=== PATIENT | female | born 1970 | race Caucasian/White ===

== ENCOUNTER → 2017-11-10 | Outpatient (REF) ==
[~2017-11-10] MED LIST: AMOX-362 PO; LEVO150T72 PO; OXYC-865 PO; SERT25TA87 PO; SIMV10TA98 PO
[2017-11-10 09:38] LABS: LDL CHOLESTEROL 164 mg/dl
== END ==
DX: Z02.9 Encounter for administrative examinations, unspecified (principal)

== ENCOUNTER → 2018-02-18 | Outpatient (CLI) | payer OTHER ==
[2018-02-18 09:24] LABS: LDL CHOLESTEROL 137 mg/dl
== END ==
LOC: LAB 07:58
PROVIDERS: ATTEND Family Medicine
DX: Z00.00 Encounter for general adult medical examination without abnormal findings (principal)
CPT/HCPCS: 36415; 82040; 82247; 82310; 82374; 82435; 82465; 82565; 82947; 83718; 84075; 84132; 84155; 84295; 84443; 84450; 84460; 84478; 84520; 85027

== ENCOUNTER → 2018-08-26 | Outpatient (CLI) | payer OTHER ==
[2018-08-26 08:31] LABS: LDL CHOLESTEROL 139 mg/dl
== END ==
LOC: LAB 08:03
PROVIDERS: ATTEND Family Medicine
DX: E03.9 Hypothyroidism, unspecified (principal); E78.5 Hyperlipidemia, unspecified
CPT/HCPCS: 36415; 82040; 82247; 82310; 82374; 82435; 82465; 82565; 82947; 83718; 84075; 84132; 84155; 84295; 84443; 84450; 84460; 84478; 84520

== ENCOUNTER → 2018-10-19 | Outpatient (CLI) | payer OTHER ==
--- NOTE | 2018-10-20 11:21 | RADIOLOGY IMAGING REPORT ---
FACILITY: [facility] PATIENT NAME: KVNG SUAREZ : [id number] MR: [id number] V: [id number] EXAM DATE: [id number] ORDERING PHYSICIAN: ANDRES FARFAN TECHNOLOGIST: Donna Dsos PROCEDURE:BILATERAL DIGITAL SCREENING MAMMOGRAM WITH CAD ASSISTED INTERPRETATION & 3D TOMOSYNTHESIS COMPARISON:Prior mammograms 09/29/17, 09/16/16, 07/16/14, 05/30/13, 11/11/12. INDICATIONS:screening FINDINGS: There are scattered areas of fibroglandular density in both breasts. The parenchymal pattern has remained stable allowing for difference in mammographic technique & patient positioning. There is no evidence of malignant appearing mass, malignant appearing calcifications or other secondary sign of malignancy in either breast. DIAGNOSTIC CATEGORY 1--NEGATIVE. RECOMMENDATIONS: ROUTINE MAMMOGRAM AND CLINICAL EVALUATION. IMPRESSION: BIRADS 1: Negative. No significant abnormality is seen. Dictated by: Cally Nelson M.D. on 10/19/2018 at 16:52 Transcribed by: LAZ on 10/20/2018 at 8:27 Approved by: Cally Nelson M.D. on 10/20/2018 at 11:19 [facility]
== END ==
LOC: MAMO 00:53
PROVIDERS: ATTEND Family Medicine
DX: Z12.31 Encounter for screening mammogram for malignant neoplasm of breast (principal)
CPT/HCPCS: 77063; 77067

== ENCOUNTER → 2018-11-17 | Outpatient (CLI) | payer OTHER | LOC: LAB 13:13 | PROVIDERS: ATTEND Surgery | DX: D22.9 Melanocytic nevi, unspecified (principal) | CPT/HCPCS: 88305 ==

== ENCOUNTER 2018-12-20 07:57 | Emergency (ER) | payer OTHER ==
[2018-12-20] MEDS ORDERED: ATOR10TA24 PO (08:12)
--- NOTE | 2018-12-20 08:42 | ER Report ---
History and Physical Time Seen By MD: 08:38 Hx. of Stated Complaint: PT PRESENTS WITH CHEST TIGHTNESS SINCE YESTERDAY. HX OF PANIC ATTACKS HPI/ROS CHIEF COMPLAINT: Chest pain HISTORY OF PRESENT ILLNESS: Patient is a 48-year-old female who presents to emergency department with complaint of chest pressure that began around 9 AM yesterday and was fairly constant throughout the day although in the evening she felt improved. She did notice an exertional component with it was some associated shortness of breath. Denies having a history of coronary artery disease. She denies hypertension but admits to elevated cholesterol. Patient states this morning the discomfort began again left side of the chest with radiation to the left shoulder. For this reason she came to the emergency department for evaluation. Patient is a smoker. REVIEW OF SYSTEMS: Constitutional: No fever, no chills. Eyes: No discharge. ENT: No sore throat. Cardiovascular: Left-sided chest pressure Respiratory: No cough, no shortness of breath. Gastrointestinal: No abdominal pain, no vomiting. Genitourinary: No hematuria. Musculoskeletal: No back pain. Skin: No rashes. Neurological: No headache. Allergies: Coded Allergies: No Known Drug Allergies (Unverified , 11/18/16) Home Meds Reported Medications Atorvastatin Calcium (LIPITOR) 10 Mg Tablet, 1 TAB PO QDAY, TAB 12/20/18 Levothyroxine Sodium (SYNTHROID) 150 Mcg Tablet, 125 MCG PO QDAY 11/18/16 Discontinued Reported Medications Sertraline Hcl (ZOLOFT) 25 Mg Tablet, 1 TAB PO QDAY, TAB 11/18/16 Past Medical/Surgical History Past medical history for high cholesterol, thyroidectomy, hypothyroidism Hx Substance Use Disorder: No Hx Alcohol Use: Yes (SOCIALLY) Constitutional Vital Sign - Last 24 Hours 12/20/18 12/20/18 12/20/18 12/20/18 08:03 08:06 08:14 08:27 Temp 98.6 Pulse 95 83 Resp 20 B/P (MAP) 156/93 (114) 156/93 141/96 (111) Pulse Ox 100 92 12/20/18 12/20/18 12/20/18 08:30 09:27 09:30 Pulse 72 Resp 16 B/P (MAP) 135/92 (106) 130/83 (99) Pulse Ox 95 Physical Exam General Appearance: The patient is alert, has no immediate need for airway protection and no signs of toxicity. Eyes: Pupils equal and round no pallor or injection. ENT, Mouth: Mucous membranes are moist. Respiratory: There are no retractions, lungs are clear to auscultation. Cardiovascular: Regular rate and rhythm. Gastrointestinal: Abdomen is soft and non tender, no masses, bowel sounds normal. Neurological: Awake and alert Skin: Warm and dry, no rashes. Musculoskeletal: Neck is supple non tender. Extremities are nontender, nonswollen and have full range of motion. Medical Decision Making Data Points Result Diagram: 12/20/18 0822 12/20/18 0822 Laboratory Hematology Test 12/20/18 08:22 12/20/18 10:39 Red Blood Count 4.70 M/uL (4.17-5.56) Mean Corpuscular Volume 89.3 fL (80.0-96.0) Mean Corpuscular Hemoglobin 30.4 pg (26.0-33.0) Mean Corpuscular Hemoglobin Concent 34.0 g/dL (32.0-36.0) Red Cell Distribution Width 12.9 % (11.5-14.5) Mean Platelet Volume 9.3 fL (7.2-11.1) Neutrophils (%) (Auto) 49.5 % (39.4-72.5) Lymphocytes (%) (Auto) 40.9 % (17.6-49.6) Monocytes (%) (Auto) 7.8 % (4.1-12.4) Eosinophils (%) (Auto) 1.2 % (0.4-6.7) Basophils (%) (Auto) 0.6 % (0.3-1.4) Nucleated RBC Relative Count (auto) 0.1 /100WBC Neutrophils # (Auto) 3.3 K/uL (2.0-7.4) Lymphocytes # (Auto) 2.7 K/uL (1.3-3.6) Monocytes # (Auto) 0.5 K/uL (0.3-1.0) Eosinophils # (Auto) 0.1 K/uL (0.0-0.5) Basophils # (Auto) 0.0 K/uL (0.0-0.1) Nucleated RBC Absolute Count (auto) 0.00 K/uL Prothrombin Time 12.7 seconds (12.0-14.4) Prothromb Time International Ratio 0.95 Activated Partial Thromboplast Time 26 seconds (23-35) Sodium Level 141 mmol/L (137-145) Potassium Level 4.0 mmol/L (3.5-5.0) Chloride Level 112 mmol/L (98-107) Carbon Dioxide Level 22 mmol/L (22-31) Blood Urea Nitrogen 12 mg/dl (7-18) Creatinine 0.80 mg/dl (0.52-1.04) Glomerular Filtration Rate Calc > 60.0 Random Glucose 91 mg/dl (75-110) Calcium Level 9.6 mg/dl (8.4-10.2) Total Bilirubin 0.3 mg/dl (0.2-1.3) Aspartate Amino Transf (AST/SGOT) 27 U/L (0-35) Alanine Aminotransferase (ALT/SGPT) 31 U/L (0-56) Alkaline Phosphatase 61 U/L (0-126) Total Protein 7.1 g/dl (6.3-8.2) Albumin 4.4 g/dl (3.5-5.0) Troponin I < 0.012 ng/ml Chemistry Test 12/20/18 08:22 12/20/18 10:39 White Blood Count 6.7 k/uL (4.5-11.0) Red Blood Count 4.70 M/uL (4.17-5.56) Hemoglobin 14.3 g/dL (12.0-16.0) Hematocrit 42.0 % (34.0-47.0) Mean Corpuscular Volume 89.3 fL (80.0-96.0) Mean Corpuscular Hemoglobin 30.4 pg (26.0-33.0) Mean Corpuscular Hemoglobin Concent 34.0 g/dL (32.0-36.0) Red Cell Distribution Width 12.9 % (11.5-14.5) Platelet Count 225 K/uL (150-450) Mean Platelet Volume 9.3 fL (7.2-11.1) Neutrophils (%) (Auto) 49.5 % (39.4-72.5) Lymphocytes (%) (Auto) 40.9 % (17.6-49.6) Monocytes (%) (Auto) 7.8 % (4.1-12.4) Eosinophils (%) (Auto) 1.2 % (0.4-6.7) Basophils (%) (Auto) 0.6 % (0.3-1.4) Nucleated RBC Relative Count (auto) 0.1 /100WBC Neutrophils # (Auto) 3.3 K/uL (2.0-7.4) Lymphocytes # (Auto) 2.7 K/uL (1.3-3.6) Monocytes # (Auto) 0.5 K/uL (0.3-1.0) Eosinophils # (Auto) 0.1 K/uL (0.0-0.5) Basophils # (Auto) 0.0 K/uL (0.0-0.1) Nucleated RBC Absolute Count (auto) 0.00 K/uL Prothrombin Time 12.7 seconds (12.0-14.4) Prothromb Time International Ratio 0.95 Activated Partial Thromboplast Time 26 seconds (23-35) Glomerular Filtration Rate Calc > 60.0 Calcium Level 9.6 mg/dl (8.4-10.2) Total Bilirubin 0.3 mg/dl (0.2-1.3) Aspartate Amino Transf (AST/SGOT) 27 U/L (0-35) Alanine Aminotransferase (ALT/SGPT) 31 U/L (0-56) Alkaline Phosphatase 61 U/L (0-126) Total Protein 7.1 g/dl (6.3-8.2) Albumin 4.4 g/dl (3.5-5.0) Troponin I < 0.012 ng/ml Coagulation Test 12/20/18 08:22 Prothrombin Time 12.7 seconds Prothromb Time International Ratio 0.95 Activated Partial Thromboplast Time 26 seconds EKG/Imaging EKG Interpretation EKG shows normal sinus rhythm with a ventricular rate of [address] segment or T-wave abnormalities. Monitor Interpretation: Normal Sinus Rhythm Imaging FACILITY: [facility] [place] PATIENT NAME: Joi Justin : 1970 MR: [id number] V: [id number] EXAM DATE: [id number] ORDERING PHYSICIAN: CHENG THOMPSON TECHNOLOGIST: Location: [facility] Patient: Joi Justin : 1970 Visit/Account:[id number] Date of Sevice: 12/20/2018 CHEST PA LAT History: Panic attacks. Shortness of breath. Smoker. FINDINGS: Comparison studies: None. Tubes and Lines: None. Lungs and pleura: Well aerated. No evidence of focal consolidation or pleural effusions. Mediastinum: normal. Cardiac silhouette: normal . Osseous structures: Unremarkable for age . IMPRESSION: Normal chest Report Dictated By: German Ruiz MD at 12/20/2018 9:16 AM Report E-Signed By: German Ruzi MD at 12/20/2018 9:17 AM WSN:[email or web address] ED Course/Re-evaluation ED Course 12/20/2018 8:45:48 am patient with episodic chest pain over the last 24 hours. Described as a pressure in the chest associated with shortness of breath. Plan at this time will be to administer aspirin we will perform cardiac workup. Initial EKG appears normal. We'll repeat a 2 hour troponin. Re-evaluation 12/20/2018 11:09:59 am patient remained symptom-free repeat troponin negative will discharge home. Decision to Disposition Date: Dec 20, 2018 Decision to Disposition Time: 11:08 Depart Departure Latest Vital Signs Vital Signs Date Time Temp Pulse Resp B/P (MAP) Pulse Ox O2 Delivery O2 Flow Rate FiO2 12/20/18 09:30 130/83 (99) 12/20/18 09:27 72 16 95 12/20/18 08:06 98.6 Impression: Primary Impression: Non-cardiac chest pain Condition: Improved Disposition: HOME OR SELF-CARE Referrals: ANDRES FARFAN DO (PCP) follow up in 4-6 weeeks for reevaluation of chest discomfort Patient Instructions: Noncardiac Chest Pain (ED) Additional Instructions: You may return to work today CHENG THOMPSON MD Dec 20, 2018 08:42
[2018-12-20] MEDS ORDERED: ASPIRIN 81 MG CHEW PO ONE (08:45)
[2018-12-20 08:51] LABS: PLATELET COUNT, AUTOMATED 225 K/uL (150-450)
[2018-12-20 08:56] LABS: INR 0.95
--- NOTE | 2018-12-20 09:20 | RADIOLOGY IMAGING REPORT ---
FACILITY: [facility] [place] PATIENT NAME: Joi Justin : 1970 MR: [id number] V: [id number] EXAM DATE: ORDERING PHYSICIAN: CHENG THOMPSON TECHNOLOGIST: Location: [facility] Patient: Joi Justin : 1970 Visit/Account:[id number] Date of Sevice: 12/20/2018 CHEST PA LAT History: Panic attacks. Shortness of breath. Smoker. FINDINGS: Comparison studies: None. Tubes and Lines: None. Lungs and pleura: Well aerated. No evidence of focal consolidation or pleural effusions. Mediastinum: normal. Cardiac silhouette: normal . Osseous structures: Unremarkable for age . IMPRESSION: Normal chest Report Dictated By: German Ruiz MD at 12/20/2018 9:16 AM Report E-Signed By: German Ruiz MD at 12/20/2018 9:17 AM WSN:[email or web address]
--- NOTE | 2018-12-20 09:53 | EKG ---
FACILITY: [facility] - [place], [place] PATIENT NAME: KVNG SUAREZ : [id number] MR: [id number] V: [id number] EXAM DATE: ORDERING PHYSICIAN: CHENG THOMPSON TECHNOLOGIST: MEL Camacho Reason : CHEST TIGHT Blood Pressure : / mmHG Vent. Rate : 091 BPM Atrial Rate : 091 BPM P-R Int : 142 ms QRS Dur : 090 ms QT Int : 364 ms P-R-T Axes : 050 048 047 degrees QTc Int : 447 ms Normal sinus rhythm Normal ECG No previous ECGs available Confirmed by José Dial ([id number] on 12/20/2018 9:43:28 PM Referred By: DONNA Confirmed By:José Mcnair
[2018-12-20 11:00] VITALS: BP 123/94
== END 2018-12-20 11:15 | disposition home or self-care (01) ==
LOC: ER 08:25
DX: R07.89 Other chest pain (principal); F17.210 Nicotine dependence, cigarettes, uncomplicated
CPT/HCPCS: 36415; 71046; 82040; 82247; 82310; 82374; 82435; 82565; 82947; 84075; 84132; 84155; 84295; 84450; 84460; 84484; 84520; 85025; 85610; 85730; 93005; 99284

== ENCOUNTER → 2019-05-29 | Outpatient (CLI) | payer OTHER ==
[~2019-05-29] MED LIST changes: +ATOR10TA24 PO; +ATOR20TA65 PO; +LEV112 PO; +LEV125 PO; +LEVO5TAB28 PO
[2019-05-29 14:08] LABS: PLATELET COUNT, AUTOMATED 228 K/uL (150-450)
[2019-05-29 14:58] LABS: LDL CHOLESTEROL 97 mg/dl
== END ==
LOC: LAB 13:20
PROVIDERS: ATTEND Internal Medicine
DX: E03.9 Hypothyroidism, unspecified (principal); E78.5 Hyperlipidemia, unspecified
CPT/HCPCS: 36415; 81001; 82040; 82247; 82310; 82374; 82435; 82465; 82565; 82947; 83718; 84075; 84132; 84155; 84295; 84439; 84443; 84450; 84460; 84478; 84520; 85025